=== PATIENT | female | born 1975 | race American Indian/Alaskan Native ===

== ENCOUNTER 2019-03-22 13:10 | Emergency (ER) | payer SELFPAY ==
--- NOTE | 2019-03-22 15:43 | Event Note ---
ED Screening Note Date of service: 03/22/19 Time: 15:36 ED Screening Note: 43 y/o female comes in staggering and fallen asleep at work. PMH NO meds no. This initial assessment/diagnostic orders/clinical plan/treatment(s) is/are subject to change based on patients health status, clinical progression and re- assessment by fellow clinical providers in the ED. Further treatment and workup at subsequent clinical providers discretion. Patient/guardian urged not to elope from the ED as their condition may be serious if not clinically assessed and managed. Initial orders include:
[2019-03-22 16:27] LABS: Basophils # (Auto) 0.1 K/mm3 (0.0-0.1); Eosinophils % (Auto) 0.6 % (0.0-4.3); Hematocrit 34.2 % (30.3-42.9); Hemoglobin 10.7 gm/dl (10.1-14.3); Lymphocytes # (Auto) 1.7 K/mm3 (1.2-5.4); Lymphocytes % (Auto) 32.5 % (13.4-35.0); Mean Corpuscular HGB Conc 31 % (30-34); Mean Corpuscular Volume 77 fl (79-97); Monocytes # (Auto) 0.5 K/mm3 (0.0-0.8); Platelet Count 261 K/mm3 (140-440); Red Blood Count 4.45 M/mm3 (3.65-5.03); Red Cell Distribution Width 19.8 % (13.2-15.2)
[2019-03-22 16:50] LABS: Alanine Aminotransferase 25 units/L (7-56); BUN/Creatinine Ratio 23; Blood Urea Nitrogen 18 mg/dL (7-17); Calcium 9.5 mg/dL (8.4-10.2); Hemolysis Index 5
[2019-03-22] MEDS ORDERED: BUTALB/ACETAMINOPHEN/CAFFEINE TAB PO ONE (17:43)
--- NOTE | 2019-03-22 18:27 | Emergency Department Report ---
ED Syncope HPI - General Chief Complaint: Medical Clearance Stated Complaint: FAINT/GEN WEAKNESS Time Seen by Provider: 03/22/19 15:36 - History of Present Illness Initial Comments: Patient is a 43-year-old female presents emergency room with complaints of syncopal episode that occurred earlier today while at school. She states that she was eating lunch in her classroom and does not know what happened. She states that she was found by other teachers on the ground. She denies any chest pain, shortness of breath, dizziness, headache prior to the incident. She states she has a headache now but otherwise feels normal. She states that over the last couple weeks she has had intermittent blurry vision. She denies any vision changes currently. She denies any numbness, weakness, speech disturbance. she states that as same incident happened 3 weeks ago and then happened again in November. She has not followed up with anyone. - Related Data Allergies/Adverse Reactions: Allergies No Known Allergies Allergy (Unverified 03/22/19 13:40) Home Medications: Ambulatory Orders Butalb/Acetaminophen/Caffeine [Fioricet 50-300-40 mg CAP] 1 cap PO Q8HR PRN #10 cap 03/22/19 ED Review of Systems ROS: Stated complaint: FAINT/GEN WEAKNESS Other details as noted in HPI Comment: All other systems reviewed and negative ED Past Medical Hx - Past Medical History Previous Medical History?: No - Surgical History Past Surgical History?: No - Social History Smoking Status: Never Smoker Substance Use Type: None - Medications Home Medications: Home Medications Medication Instructions Recorded Confirmed Last Taken Type Butalb/Acetaminophen/Caffeine 1 cap PO Q8HR PRN #10 cap 03/22/19 Unknown Rx [Fioricet 50-300-40 mg CAP] ED Physical Exam - General Limitations: No Limitations General appearance: alert, in no apparent distress - Head Head exam: Present: atraumatic, normocephalic - Eye Eye exam: Present: normal appearance, PERRL, EOMI - ENT ENT exam: Present: mucous membranes moist - Respiratory Respiratory exam: Present: normal lung sounds bilaterally. Absent: respiratory distress, wheezes, rales, rhonchi, stridor, chest wall tenderness, accessory muscle use, decreased breath sounds, prolonged expiratory - Cardiovascular Cardiovascular Exam: Present: regular rate, normal rhythm, normal heart sounds. Absent: systolic murmur, diastolic murmur, rubs, gallop - Neurological Exam Neurological exam: Present: alert, oriented X3, CN II-XII intact, normal gait, other (normal finger to nose, normal heel to ferris, 5/5 strength in the BUE/BLE, sensation intact, no facial asymmetry, no pronator drift, able to lift each leg off the bed and hold it for 15 seconds, no focal neuro deficits). Absent: motor sensory deficit - Psychiatric Psychiatric exam: Present: normal affect, normal mood - Skin Skin exam: Present: warm, dry, intact ED Course Vital Signs 03/22/19 03/22/19 15:43 21:03 Temperature 98.4 F 98.6 F Pulse Rate 88 81 Respiratory 16 20 Rate Blood Pressure 109/66 Blood Pressure 132/88 [Right] O2 Sat by Pulse 99 100 Oximetry ED Medical Decision Making - Lab Data Result diagrams: 03/22/19 16:04 03/22/19 16:04 - EKG Data EKG shows normal: sinus rhythm, intervals, QRS complexes, ST-T waves Rate: normal - EKG Data 03/22/19 20:33 LAD no STEMI - Radiology Data Radiology results: report reviewed CT BRAIN: 03/22/2019 INDICATION / CLINICAL INFORMATION: syncope, headache. COMPARISON: None available. FINDINGS: BRAIN/INTRACRANIAL STRUCTURES: Unenhanced CT images of the brain were obtained. There is some slight patient motion artifact. Taking this into account, there is no evidence of acute abnormality. Ventricles and sulci are slightly prominent in size for a patient of this age, consistent with some diffuse atrophic change. There is no evidence of ischemic injury, hemorrhage, or mass. There are no abnormal extra-axial fluid collections. EXTRACRANIAL STRUCTURES: Unremarkable. IMPRESSION: No acute abnormality. Motion artifact noted. All CT scans at this location are performed using dose reduction to ALARA by means of automated exposure control. Signer Name: Joey Gaming MD Signed: 03/22/2019 6:38 PM Workstation Name: [id number] Transcribed By: ROSHAN Dictated By: Joey Gaming MD Electronically Authenticated By: Joey Gaming MD Signed Date/Time: 03/22/191837 DD/ 34 TD/TT: - Medical Decision Making Patient is a 43-year-old female presents emergency room with complaints of syncopal episode that occurred earlier today while at school. She states that she was eating lunch in her classroom and does not know what happened. She states that she was found by other teachers on the ground. She denies any chest pain, shortness of breath, dizziness, headache prior to the incident. She states she has a headache now but otherwise feels normal. She states that over the last couple weeks she has had intermittent blurry vision. She denies any v ision changes currently. She denies any numbness, weakness, speech disturbance. she states that as same incident happened 3 weeks ago and then happened again in November. She has not followed up with anyone. vitals are normal. no abnormality on physical examination as documented in chart. labs are stable. UA without evidence of UTI. UDS positive for benzos. CT head: No acute abnormality. Motion artifact noted. EKG WNL. PERC criteria negative for PE. pt given fioricet for her headache and it improved. advised pt to please take medication as prescribed as needed. please follow up with a journalism intern. please follow up with a neurologist. do not drive until you have been cleared by a cardiology and neurologist. return to the emergency room for any new or worsening symptoms. - Differential Diagnosis ICH, SAH, SDH, mass, aneursym, arrhythmia, vasovagal, anemia, hypoglycemia Critical care attestation.: If time is entered above; I have spent that time in minutes in the direct care of this critically ill patient, excluding procedure time. ED Disposition Clinical Impression: Syncope Qualifiers: Syncope type: unspecified Qualified Code(s): R55 - Syncope and collapse Headache Qualifiers: Headache type: unspecified Headache chronicity pattern: acute headache Intractability: not intractable Qualified Code(s): R51 - Headache Disposition: DC-01 TO HOME OR SELFCARE Is pt being admited?: No Does the pt Need Aspirin: No Condition: Stable Instructions: Migraine Headache (ED), Syncope (ED) Additional Instructions: please take medication as prescribed as needed. please follow up with a journalism intern. please follow up with a neurologist. do not drive until you have been cleared by a cardiology and neurologist. return to the emergency room for any new or worsening symptoms. Prescriptions: Butalb/Acetaminophen/Caffeine [Fioricet 50-300-40 mg CAP] 1 cap PO Q8HR PRN #10 cap PRN Reason: headache Referrals: MURTAZA LEY MD [Staff Physician] - 2-3 Days KEERTHI TAPIA MD [Staff Physician] - 2-3 Days BARBARA PATEL MD [Staff Physician] - 2-3 Days RUTH RODRIGUEZ MD [Referring] - 2-3 Days PEGGY GARDUNO MD [Staff Physician] - 2-3 Days PRIMARY [facility]ARE, [Primary Care Provider] - 2-3 Days Forms: Work/School Release Form(ED) Time of Disposition: 20:25 Print Language: PERSIAN
--- NOTE | 2019-03-22 18:42 | Cat Scan Report ---
CT BRAIN: 03/22/2019 INDICATION / CLINICAL INFORMATION: syncope, headache. COMPARISON: None available. FINDINGS: BRAIN/INTRACRANIAL STRUCTURES: Unenhanced CT images of the brain were obtained. There is some slight patient motion artifact. Taking this into account, there is no evidence of acute abnormality. Ventricles and sulci are slightly prominent in size for a patient of this age, consistent with some d iffuse atrophic change. There is no evidence of ischemic injury, hemorrhage, or mass. There are no abnormal extra-axial fluid collections. EXTRACRANIAL STRUCTURES: Unremarkable. IMPRESSION: No acute abnormality. Motion artifact noted. All CT scans at this location are performed using dose reduction to ALARA by means of automated expos ure control. Signer Name: Joey Gaming MD Signed: 03/22/2019 6:38 PM Workstation Name: [id number]
[2019-03-22 18:49] LABS: Bacteria,Urine 4+ /HPF (Negative); Bilirubin,Urine NEG (Negative); Blood,Urine NEG (Negative); Color,Urine Yellow (Yellow); Mucus,Urine 3+ /HPF; Protein,Urine <15 mg/dL mg/dL (Negative); Urobilinogen,Urine < 2.0 mg/dL (<2.0)
[2019-03-22 18:56] LABS: HCG Qualitative,Urine Negative (Negative)
[2019-03-22 19:09] LABS: Amphetamine Screen,Urine PRESUMPTIVE NEGATIVE; Cannabinoid Screen,Urine PRESUMPTIVE NEGATIVE; Cocaine Screen,Urine PRESUMPTIVE NEGATIVE; Methadone Screen,Urine PRESUMPTIVE NEGATIVE; Opiate Screen,Urine PRESUMPTIVE NEGATIVE
[2019-03-22 19:21] LABS: Benzodiazepines Screen,Urine PRESUMPTIVE POSITIVE
[2019-03-22 21:04] VITALS: BP 132/88
== END 2019-03-22 21:59 | disposition home or self-care (01) ==
LOC: ED 13:10
DX: R55 Syncope and collapse (principal); R51 Headache
CPT/HCPCS: 36415; 70450; 80053; 80307; 80320; 81001; 81025; 85025; 93005; 93010; G0480